=== PATIENT | male | born 1945 | race Caucasian/White ===

== ENCOUNTER → 2021-03-23 | Outpatient (CLI) | payer MEDICARE, OTHER ==
[~2021-03-23] MED LIST: IOHEXOL 300 MG/ML 75 ML VIAL. IV ONE
[2021-03-23 09:39] LABS: GFR 72.6
--- NOTE | 2021-03-23 11:12 | RAD ---
EXAMINATION: CT abdomen and pelvis with and without IV contrast. INDICATION:75 years, Male, gross hematuria. TECHNIQUE: Axial CT images of the abdomen and pelvis were obtained. Coronal and sagittal reformatted performed. COMPARISON: None. Exposure: One or more of the following individualized dose reduction techniques were utilized for thi s examination: 1. Automated exposure control 2. Adjustment of the mA and/or kV according to patient size 3. Use of iterative reconstruction technique. FINDINGS: LOWER CHEST: Segmental atelectasis in bibasilar lungs. Trace amount of pericardial effusion. ABDOMEN/PELVIS: Normal symmetric enhancement and excretion pattern kidneys with no hydronephrosis or nephrolithiasis. Subcentimeter hypodensity in the left renal cortex, too small to characterize, statistically represe nting benign etiology such as cysts. No filling defect in the collecting systems or ureters. Nonspeci fic bilateral perinephric fat stranding. Diffuse trabeculated urinary bladder wall, likely secondary to chronic outlet obstruction. No focal wall thickening or bladder masses. Enlarged heterogeneous pro state gland, indenting bladder base, the maximum transverse diameter measures 7.2 cm. Unremarkable se ky vesicles. Liver, gallbladder, biliary ducts, and spleen are unremarkable. Subcentimeter fat density focus in th e pancreatic head, may represent intrapancreatic lipoma versus interdigitating fat. Nodular thickenin g of the left adrenal gland without discrete nodule. Right adrenal gland is unremarkable. No bowel ob struction or wall thickening. Significant amount of colonic diverticulosis without diverticulitis. No rmal appendix. Mild aortoiliac atherosclerotic calcifications without dilatation. Mesenteric arteries and portal vein are patent. No lymphadenopathy in the abdomen or pelvis by size criteria. No pneumop eritoneum or ascites. MUSCULOSKELETAL: No acute osseous process. 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 Small fat-containin g umbilical hernia. There are 2 sclerotic lesions with central lucency in the right femoral neck, the largest measures 2.5 cm (series 3 image 62). IMPRESSION: 1. No obstructive uropathy, urolithiasis or suspicious urinary masses. 2. 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 3. 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 Consider correlation with PSA leve l. It PSA level is elevated, further evaluation with MRI prostate is advised. 4. Two sclerotic lesions with central lucency in the right femoral neck, indeterminate. Differential includes atypical bone islands versus metastasis. Comparison with prior images is helpful to document long-term stability. If PSA level is elevated, consider further evaluation with nuclear bone scintig amy scan. Electronically signed by: Yvon Ann MD (03/23/2021 11:10 AM) [id number]
== END ==
LOC: CT 08:31
PROVIDERS: ATTEND Specialist
DX: N40.0 Benign prostatic hyperplasia without lower urinary tract symptoms (principal); N32.89 Other specified disorders of bladder; K42.9 Umbilical hernia without obstruction or gangrene; K57.30 Diverticulosis of large intestine without perforation or abscess without bleeding; I70.0 Atherosclerosis of aorta; E27.8 Other specified disorders of adrenal gland; R31.0 Gross hematuria; M47.816 Spondylosis without myelopathy or radiculopathy, lumbar region; M25.80 Other specified joint disorders, unspecified joint
CPT/HCPCS: 36415; 74178; 82565; Q9967

== ENCOUNTER → 2021-09-07 | Outpatient (CLI) | payer MEDICARE, OTHER ==
--- NOTE | 2021-09-07 17:35 | RAD ---
EXAM: BONE SCINTIGRAPHY. HISTORY: Elevated PSA. Sclerotic right femoral lesions. TECHNIQUE: Following the intravenous injection of 25.1 mCi of Tc-99m labeled methylene diphosphonate (MDP), delayed images of the whole body were performed in anterior and posterior projections. COMPARISON: CT abdomen pelvis 03/23/2021. FINDINGS: There is increased activity transversely across the L2 vertebral body. Additional foci of a ctivity are present at the right greater than left knee medial tibiofemoral compartment, left greater than right midfoot and left greater than right first MTP, most consistent with degenerative changes. Normal renal excretory activity. No activity identified corresponding to the sclerotic foci in the r ight proximal femur. IMPRESSION: 1. Increased activity in the L2 vertebral body which is favored to represent sequela of compression f racture given transverse morphology. Osseous malignancy and degenerative disease are also within the differential. Recommend correlation with lumbar spine radiographs and potentially CT or MRI as indica diane. 2. No abnormal activity identified in the right femoral neck to suggest aggressive lesion correspondi ng to the sclerotic foci seen on comparison CT. 3. Typical appearance of degenerative changes in the knees and feet. Electronically signed by: Robert Schwartz MD (09/07/2021 5:33 PM) [id number]
== END ==
LOC: NM 09:14
PROVIDERS: ATTEND Urology
DX: C67.9 Malignant neoplasm of bladder, unspecified (principal); S32.020S Wedge compression fracture of second lumbar vertebra, sequela; X58.XXXS Exposure to other specified factors, sequela
CPT/HCPCS: 78306; A9503